=== PATIENT | male | born 1940 | race Caucasian/White ===

== ENCOUNTER 2022-06-10 03:54 | Inpatient (IN) | payer OTHER ==
[~2022-06-10] VITALS: Ht 177.8 cm; Wt 90.0 kg
[2022-06-10 05:57] LABS: Basophils # (auto) 0 10 ^3/uL (0-0.2); Basophils % (auto) 0.1 % (0.0-2.0); Eosinophils # (auto) 0 10 ^3/uL (0-0.8); Hematocrit 33.7 % (41.0-53.0); Lymphocytes % (auto) 6.1 % (10.0-50.0); Mean Corpuscular Hemoglobin 29.6 pg (28.0-32.0); Mean Corpuscular Hgb Conc. 32.7 g/dL (32.0-36.0); Mean Corpuscular Volume 90.7 fL (80.0-100.0); Monocytes % (auto) 5.8 % (0.0-12.0); Neutrophils # (auto) 15.1 10 ^3/uL (1.6-8.6); Red Blood Cells 3.72 10^6/uL (4.5-5.90); Red Cell Distribution Width 13.9 % (11.8-14.3); White Blood Cell 17.2 10^3/uL (4.4-10.8)
[2022-06-10 06:36] LABS: Albumin 2.6 g/dL (3.4-5.0); BUN/Creatinine Ratio 11.1; Calcium 8.3 mg/dL (8.5-10.1); Potassium 3.2 mmol/L (3.5-5.1)
[2022-06-10 06:38] LABS: Bilirubin, Total 0.6 mg/dL (0.2-1.0); Total Protein 6.5 g/dL (6.4-8.2)
[2022-06-10 07:58] LABS: Lactic Acid w/Reflex 2.8 mmol/L (0.4-2.0)
[2022-06-10 09:20] LABS: Urine Bacteria MOD /hpf (None Seen); Urine Blood 3+ /uL (Negative); Urine Mucus FEW (None Seen); Urine Specific Gravity 1.017 (1.001-1.035); Urine WBC 361 /hpf (0 - 3); Urine WBC Clumps PRESENT /hpf (None Seen)
[2022-06-10] MEDS ORDERED: ACETAMINOPHEN 325 MG TAB PO ONE ×3 (09:45→19:15)
[2022-06-10] MEDS ORDERED: cefTRIAXone 1GM/50ML D5W 50 ML IV ONE (09:45)
[2022-06-10] MEDS ORDERED: SODIUM CHLORIDE 0.9% 1,000 ML IV ONE (09:45)
[2022-06-10] MEDS ORDERED: InsuLIN REG 1unit/0.01ml Soln (100units/ml) IV ONE (12:15)
[2022-06-10] MEDS ORDERED: POTASSIUM EFFERVESENT TAB 25 MEQ PO ONE (12:15)
[2022-06-10] MEDS ORDERED: SODIUM CHLORIDE 0.9% 2,000 ML IV ONE (15:00)
[2022-06-10] MEDS ORDERED: PIPERACILLIN-TAZOB 2.25GM 50 ML IV ONE (16:45)
[2022-06-10] MEDS ORDERED: TEMAZEPAM 15 MG CAP PO PRN (21:00)
[2022-06-10] MEDS ORDERED: ALBUMIN 5% 250 ML IV ONE (21:00)
[2022-06-10] MEDS ORDERED: DEXTROSE (50%) 50ML SYRG IV PRN (21:00)
[2022-06-10] MEDS ORDERED: HYDROcodone-ACET 5/325MG TAB PO PRN (21:00)
[2022-06-10] MEDS: SODIUM CHLORIDE 0.9% 1,000 ML IV SCH (21:43)
[2022-06-10] MEDS: ACCU-CHEK COMFORT CURVE STRIP VI SCH (22:10)
[2022-06-10] MEDS: InsuLIN REG 1unit/0.01ml Soln (100units/ml) SC SCH (22:11)
[2022-06-10] MEDS ORDERED: MORPHINE SULFATE INJ 2 MG/ml SYRG IV PRN (22:15)
[2022-06-10] MEDS ORDERED: NITROGLYCERIN 0.4 MG SL TAB SL PRN (22:15)
[2022-06-10 23:25] VITALS: BP 98/65
[2022-06-10 23:30] VITALS: BP 82/44
[2022-06-11 04:31] LABS: Basophils # (auto) 0 10 ^3/uL (0-0.2); Basophils % (auto) 0.4 % (0.0-2.0); Eosinophils # (auto) 0 10 ^3/uL (0-0.8); Hematocrit 32.1 % (41.0-53.0); Hemoglobin 10.8 g/dL (13.5-17.5); Lymphocytes # (auto) 0.9 10 ^3/uL (0.4-5.4); Lymphocytes % (auto) 10.3 % (10.0-50.0); Mean Corpuscular Hemoglobin 30.2 pg (28.0-32.0); Mean Corpuscular Hgb Conc. 33.8 g/dL (32.0-36.0); Mean Corpuscular Volume 89.3 fL (80.0-100.0); Monocytes # (auto) 0.4 10 ^3/uL (0-1.3); Monocytes % (auto) 5.2 % (0.0-12.0); Neutrophils # (auto) 7.2 10 ^3/uL (1.6-8.6); Neutrophils % (auto) 84.1 % (37.0-80.0); Red Blood Cells 3.59 10^6/uL (4.5-5.90); Red Cell Distribution Width 13.5 % (11.8-14.3); White Blood Cell 8.6 10^3/uL (4.4-10.8)
[2022-06-11 04:53] LABS: Albumin 2.4 g/dL (3.4-5.0); Calcium 7.9 mg/dL (8.5-10.1); Potassium 3.5 mmol/L (3.5-5.1)
[2022-06-11 04:56] LABS: BUN/Creatinine Ratio 14.7; Bilirubin, Total 0.6 mg/dL (0.2-1.0); Total Protein 5.5 g/dL (6.4-8.2)
[2022-06-11 05:25] VITALS: BP 104/68
[2022-06-11] MEDS: ACCU-CHEK COMFORT CURVE STRIP VI SCH ×4 (07:15→21:54)
[2022-06-11] MEDS: InsuLIN REG 1unit/0.01ml Soln (100units/ml) SC SCH ×4 (07:15→21:53)
[2022-06-11] MEDS: SODIUM CHLORIDE 0.9% 1,000 ML IV SCH ×2 (08:18→18:49)
[2022-06-11 08:43] VITALS: BP 105/61
[2022-06-11] MEDS ORDERED: cefTRIAXone 1GM/50ML D5W 50 ML IV SCH (09:00)
[2022-06-11 13:00] VITALS: BP 102/64
[2022-06-11] MEDS: PIPERACILLIN-TAZOB 3.375GM 100 ML IV SCH ×2 (16:09→22:00)
[2022-06-11] MEDS: ONDANSETRON HCL 4 MG/2 ML VIAL IV PRN (16:09)
[2022-06-11 17:16] VITALS: BP 100/56
[2022-06-11] MEDS: ACETAMINOPHEN 325 MG TAB PO PRN (20:36)
[2022-06-11 22:00] VITALS: BP 116/48
[2022-06-11] MEDS ORDERED: INSULIN LANTUS (GLARGINE) 1 /0.01ml (100units/ml) SC SCH (22:00)
[2022-06-12] MEDS: PIPERACILLIN-TAZOB 3.375GM 100 ML IV SCH ×2 (04:00→10:10)
[2022-06-12] MEDS: SODIUM CHLORIDE 0.9% 1,000 ML IV SCH ×2 (04:45→14:13)
[2022-06-12 05:00] VITALS: BP 115/66
[2022-06-12 05:44] LABS: Basophils # (auto) 0 10 ^3/uL (0-0.2); Basophils % (auto) 0.2 % (0.0-2.0); Eosinophils # (auto) 0.1 10 ^3/uL (0-0.8); Monocytes # (auto) 0.5 10 ^3/uL (0-1.3); Neutrophils # (auto) 5.9 10 ^3/uL (1.6-8.6)
[2022-06-12 05:50] LABS: Eosinophils % (auto) 0.9 % (0.0-7.0); Hematocrit 29.2 % (41.0-53.0); Hemoglobin 10.1 g/dL (13.5-17.5); Lymphocytes % (auto) 12.9 % (10.0-50.0); Mean Corpuscular Hemoglobin 30.9 pg (28.0-32.0); Mean Corpuscular Hgb Conc. 34.5 g/dL (32.0-36.0); Mean Corpuscular Volume 89.7 fL (80.0-100.0); Nucleated Red Blood Cells % 0.1 %; Red Blood Cells 3.26 10^6/uL (4.5-5.90); Red Cell Distribution Width 13.6 % (11.8-14.3); White Blood Cell 7.4 10^3/uL (4.4-10.8)
[2022-06-12 05:55] LABS: Calcium 7.4 mg/dL (8.5-10.1); Potassium 3.8 mmol/L (3.5-5.1)
[2022-06-12] MEDS: InsuLIN REG 1unit/0.01ml Soln (100units/ml) SC SCH ×4 (06:10→22:08)
[2022-06-12] MEDS: ACCU-CHEK COMFORT CURVE STRIP VI SCH ×4 (06:11→22:01)
[2022-06-12 09:00] VITALS: BP 114/73
[2022-06-12] MEDS: ONDANSETRON HCL 4 MG/2 ML VIAL IV PRN (11:33)
[2022-06-12 13:00] VITALS: BP 117/78
[2022-06-12] MEDS: cefTRIAXone 1GM/50ML D5W 50 ML IV SCH (16:31)
[2022-06-12 16:47] VITALS: BP 118/75
[2022-06-12] MEDS ORDERED: POLYETHYLENE GLYCOL 17 GM PWDR PO ONE (18:15)
[2022-06-12 22:00] VITALS: BP 115/82
[2022-06-12] MEDS: INSULIN LANTUS (GLARGINE) 1 /0.01ml (100units/ml) SC SCH (22:05)
[2022-06-13 05:00] VITALS: BP 127/73
[2022-06-13] MEDS: ACCU-CHEK COMFORT CURVE STRIP VI SCH ×3 (06:09→17:00)
[2022-06-13] MEDS: InsuLIN REG 1unit/0.01ml Soln (100units/ml) SC SCH ×3 (06:10→17:40)
[2022-06-13 06:25] LABS: Basophils # (auto) 0 10 ^3/uL (0-0.2); Basophils % (auto) 0.2 % (0.0-2.0); Eosinophils # (auto) 0.1 10 ^3/uL (0-0.8); Eosinophils % (auto) 0.9 % (0.0-7.0); Hematocrit 29.1 % (41.0-53.0); Hemoglobin 10.2 g/dL (13.5-17.5); Lymphocytes # (auto) 1.3 10 ^3/uL (0.4-5.4); Lymphocytes % (auto) 20.2 % (10.0-50.0); Mean Corpuscular Hemoglobin 30.9 pg (28.0-32.0); Mean Corpuscular Volume 88.2 fL (80.0-100.0); Monocytes # (auto) 0.5 10 ^3/uL (0-1.3); Monocytes % (auto) 7.1 % (0.0-12.0); Neutrophils # (auto) 4.7 10 ^3/uL (1.6-8.6); Neutrophils % (auto) 71.6 % (37.0-80.0); Red Cell Distribution Width 13.7 % (11.8-14.3); White Blood Cell 6.6 10^3/uL (4.4-10.8)
[2022-06-13 06:27] LABS: Calcium 7.7 mg/dL (8.5-10.1); Potassium 3.4 mmol/L (3.5-5.1)
[2022-06-13 08:34] VITALS: BP 133/76
[2022-06-13] MEDS ORDERED: POLYETHYLENE GLYCOL 17 GM PWDR PO SCH (10:00)
[2022-06-13] MEDS: cefTRIAXone 1GM/50ML D5W 50 ML IV SCH (10:16)
[2022-06-13] MEDS: INSULIN LANTUS (GLARGINE) 1 /0.01ml (100units/ml) SC SCH (10:17)
[2022-06-13] MEDS: ACETAMINOPHEN 325 MG TAB PO PRN (10:39)
[2022-06-13] MEDS: SODIUM CHLORIDE 0.9% 1,000 ML IV SCH ×2 (10:45)
[2022-06-13 13:09] VITALS: BP_SYST 114; BP_SYST 143; BP_DIAS 61; BP_DIAS 66
[2022-06-13] MEDS ORDERED: FIN5T PO (15:59)
[2022-06-13] MEDS ORDERED: LISI-716 PO (15:59)
[2022-06-13] MEDS ORDERED: METO25TA93 PO (15:59)
[2022-06-13] MEDS ORDERED: SIMV-8 PO (15:59)
[2022-06-13] MEDS ORDERED: TAMS1CAP25 PO (15:59)
[2022-06-13] MEDS ORDERED: INSU1INJ5 SC (15:59)
[2022-06-13] MEDS ORDERED: METF-372 PO (15:59)
[2022-06-13] MEDS ORDERED: LEVO500T31 PO (16:00)
[2022-06-13 17:00] VITALS: BP 127/89
[2022-06-13 21:42] VITALS: BP 124/67
[2022-06-13 22:00] VITALS: BP 124/67
== END 2022-06-13 22:26 | disposition home or self-care (01) | DRG 871 ==
LOC: ER 03:54 → EDBD 03:54 → TELE 22:10 → TELE-WESTW 23:50
PROVIDERS: ADMIT Nurse Practitioner; ATTEND Internal Medicine
DX: A41.9 Sepsis, unspecified organism (principal); E43 Unspecified severe protein-calorie malnutrition; G93.41 Metabolic encephalopathy; N39.0 Urinary tract infection, site not specified; G82.20 Paraplegia, unspecified; C67.9 Malignant neoplasm of bladder, unspecified; E66.01 Morbid (severe) obesity due to excess calories; B96.1 Klebsiella pneumoniae [K. pneumoniae] as the cause of diseases classified elsewhere; K76.0 Fatty (change of) liver, not elsewhere classified; N40.1 Benign prostatic hyperplasia with lower urinary tract symptoms; Z20.822 Contact with and (suspected) exposure to COVID-19; R33.8 Other retention of urine; E11.21 Type 2 diabetes mellitus with diabetic nephropathy; E86.0 Dehydration; E87.6 Hypokalemia; I10 Essential (primary) hypertension; Z85.51 Personal history of malignant neoplasm of bladder; Z68.28 Body mass index [BMI] 28.0-28.9, adult; Z92.21 Personal history of antineoplastic chemotherapy; Z92.3 Personal history of irradiation
CPT/HCPCS: 36415; 70450; 71045; 76775; 80048; 80053; 81001; 82962; 83605; 83880; 84484; 85025; 87040; 87077; 87086; 87088; 87186; 93005; 97110; 97116; 97163; 97530; G0378; J0696; J1815; J2405; J2543